=== PATIENT | female | born 1950 | race American Indian/Alaskan Native ===

== ENCOUNTER 2019-03-27 04:44 | Emergency (ER) | payer MEDICARE ==
[2019-03-27 06:09] LABS: Basophils # (Auto) 0.1 K/mm3 (0.0-0.1); Basophils % (Auto) 0.9 % (0.0-1.8); Eosinophils # (Auto) 0.1 K/mm3 (0.0-0.4); Eosinophils % (Auto) 1.2 % (0.0-4.3); Hematocrit 40.7 % (30.3-42.9); Hemoglobin 13.4 gm/dl (10.1-14.3); Lymphocytes # (Auto) 0.9 K/mm3 (1.2-5.4); Lymphocytes % (Auto) 11.6 % (13.4-35.0); Mean Corpuscular HGB Conc 33 % (30-34); Mean Corpuscular Volume 84 fl (79-97); Monocytes # (Auto) 0.7 K/mm3 (0.0-0.8); Monocytes % (Auto) 9.1 % (0.0-7.3); Platelet Count 426 K/mm3 (140-440); Red Blood Count 4.87 M/mm3 (3.65-5.03); Red Cell Distribution Width 15.1 % (13.2-15.2)
[2019-03-27 06:16] LABS: Color,Urine Yellow (Yellow)
[2019-03-27 06:17] LABS: Bilirubin,Urine Negative (Negative); Blood,Urine Small (Negative); Urobilinogen,Urine < 2.0 mg/dL (<2.0)
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
[2019-03-27 06:18] LABS: Bacteria,Urine 1+ /HPF (Negative)
[2019-03-27 06:28] LABS: Calcium 10.4 mg/dL (8.4-10.2)
[2019-03-27 06:46] LABS: Amphetamine Screen,Urine PRESUMPTIVE NEGATIVE; Benzodiazepines Screen,Urine PRESUMPTIVE NEGATIVE; Cannabinoid Screen,Urine PRESUMPTIVE NEGATIVE; Cocaine Screen,Urine PRESUMPTIVE NEGATIVE; Methadone Screen,Urine PRESUMPTIVE NEGATIVE; Opiate Screen,Urine PRESUMPTIVE NEGATIVE
[2019-03-27 07:51] LABS: INR 1.61 (0.87-1.13)
[2019-03-27 07:52] LABS: Partial Thromboplastin Time 31.8 Sec. (24.2-36.6)
[2019-03-27] MEDS ORDERED: POTASSIUM CHLORIDE ER 20 MEQ TAB PO ONE (12:44)
[2019-03-27] MEDS ORDERED: ALUM-MAG HYDROXIDE-SIMETHICONE 200-200-20MG/5ML ORAL LIQD 30 ML PO PRN (13:30)
[2019-03-27] MEDS ORDERED: ACETAMINOPHEN 325 MG TAB PO PRN (13:30)
[2019-03-27] MEDS ORDERED: MAGNESIUM HYDROXIDE (MOM) ORAL LIQD UDC PO PRN (13:30)
[2019-03-27] MEDS ORDERED: ISOSORBIDE DINITRATE 20 MG TAB PO SCH (14:00)
[2019-03-27] MEDS ORDERED: WARFARIN 5 MG TAB PO SCH (14:00)
[2019-03-27] MEDS ORDERED: amLODIPine 5 MG TAB PO SCH (14:00)
[2019-03-27] MEDS ORDERED: cloNIDine 0.1 MG TAB PO SCH (14:00)
[2019-03-27] MEDS ORDERED: WARFARIN 2 MG TAB PO SCH (17:00)
[2019-03-27 18:20] VITALS: BP 143/67
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
[2019-03-27] MEDS ORDERED: PRAVASTATIN 40 MG TAB PO SCH (22:00)
== END 2019-03-27 20:33 ==
LOC: ED 04:44
DX: F22 Delusional disorders (principal); E87.6 Hypokalemia; I10 Essential (primary) hypertension; I25.2 Old myocardial infarction; Z86.73 Personal history of transient ischemic attack (TIA), and cerebral infarction without residual deficits
CPT/HCPCS: 36415; 80048; 80307; 80320; 81001; 82550; 82553; 83880; 84703; 85025; 85610; 85730; A9270-GY; G0480